=== PATIENT | male | born 1975 | race Caucasian/White ===

== ENCOUNTER 2017-01-19 14:02 | Inpatient (IN) ==
[2017-01-19] MEDS ORDERED: *HR* LORazepam 1 MG TABLET PO ONE (14:39)
--- NOTE | 2017-01-19 14:42 | Emergency Department Note ---
Disposition Clinical Impression: Suicidal ideation, Homicidal ideation, Planning to commit suicide Disposition: Admitted As Inpatient Condition: Fair Referrals: NO,PCP [Primary Care Provider] - Forms: ED Satisfaction Letter Psych HPI - General Chief Complaint: ED Psychiatric Symptoms Stated Complaint: SI Time Seen by Provider: 01/19/17 14:14 Source: family Nursing Notes Reviewed: Yes Vital Signs Reviewed: Yes - History of Present Illness HPI Narrative: The patient has used medications for mental health in the past most recently 1 year ago when he tried 3 different medications but those have since been stopped. The patient resents with several days' symptoms of suicidal ideation and plan to either step in front of a train or tissue to himself was gone and he does have a gun in his home. He does also have some homicidal ideation and when I ask him what he means by this he states "anyone who deserves". He denies any visual or auditory hallucinations. No medications used for symptoms. Is not currently seeing a mental health professional. Social history : No smoking or alcohol or drugs. 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 - Related Data Home Medications Medication Instructions Recorded Confirmed No Known Home Drugs 01/19/17 01/19/17 Allergies Allergy/AdvReac Type Severity Reaction Status Date / Time No Known Allergies Allergy Verified 01/19/17 14:09 Review of Systems: Constitutional: No fever Vision: No blurred vision ENT: No rhinorrhea Respiratory: No cough Allergic: No allergies : No blood in urine GI: No blood in stool Hematologic: No bruising Dermatologic: No skin rash Musculoskeletal: No pain in the extremities Neuro: No numbness of the extremities Past Medical History - Past Medical History Medical history: Reports: no medical history Psychiatric history: Reports: anxiety, depression - Social History Smoking Status: Never smoker Alcohol use: Reports: occasionally Drug use: Reports: none Physical Exam CONSTITUTIONAL: Alert and oriented X3, well-nourished, he does appear agitated, is slightly tremulous, intermittently tearful. HEAD: Normocephalic; atraumatic. EYES: PERRL, no scleral icterus. NOSE: The nose is normal in appearance without rhinorrhea RESP: Normal chest excursion with respiration; breath sounds clear and equal bilaterally; no wheezes, rhonchi, or rales CARD: Regular rhythm, without murmurs, rub or gallop ABD: Non-distended; non-tender, soft,without rigidity, rebound or guarding SKIN: Normal for age and race; warm and dry; no apparent lesions - General General appearance: alert, anxious Course Vital Signs Temperature 98.0 F 01/19/17 14:03 Pulse Rate 102 01/19/17 14:03 Respiratory Rate 22 01/19/17 14:03 Blood Pressure 166/102 01/19/17 14:03 O2 Sat by Pulse Oximetry 97 01/19/17 14:03 Temperature 98.0 F 01/19/17 14:03 Pulse Rate 102 01/19/17 14:03 Respiratory Rate 22 01/19/17 14:03 Blood Pressure 166/102 01/19/17 14:03 O2 Sat by Pulse Oximetry 97 01/19/17 14:03 Oxygen Delivery Oxygen Delivery Room Air Psych - MDM Narrative Medical decision making narrative: The patient does have labs which are pending and will be seen by the psychiatric services. I did write a pink slip is a patient does represent significant harm to both himself and others. 1442 I did review the labs. The patient has been seen by psychiatry. The patient will be admitted to their service. 1524 - Lab Data Result diagrams: 01/19/17 14:46 Lab Results 01/19/17 01/19/17 Range/Units 14:46 14:46 WBC 7.8 (4.3-11.1) K/mcL RBC 5.68 H (4.19-5.50) M/mcL Hgb 17.8 H (12.9-16.9) g/dL Hct 48.5 (37.5-50.1) % MCV 85.4 (83.0-100.0) fL MCH 31.3 (28.0-33.3) pg MCHC 36.7 H (31.6-35.5) g/dL RDW 12.3 (11.5-14.5) % Plt Count 302 (140-400) K/mcL MPV 9.5 (9.4-12.4) fL Immature Gran % 0.3 (0-4) % Seg Neutrophils % 66.9 % Lymphocytes % 25.3 % Monocytes % 6.5 % Eosinophils % 0.0 % Basophils % 1.0 % Neutrophils # 5.2 (1.6-8.9) K/mcL Lymphocytes # 2.0 (0.6-4.6) K/mcL Monocytes # 0.5 (0.0-1.3) K/mcL Eosinophils # 0.0 (0.0-0.6) K/mcL Basophils # 0.1 (0.0-0.2) K/mcL Salicylates < 5.0 L (15-30) mg/dL Acetaminophen < 1.0 L (10-30) mcg/mL Ethyl Alcohol < 10 (0-10) mg/dL Psychiatric Medical Clearance - Medical Clearance Checklist Medical History: No Social History Section defined Current Vitals: Last Vital Signs Temp 98.0 F 01/19/17 14:03 Pulse 102 01/19/17 14:03 Resp 22 01/19/17 14:03 BP 166/102 01/19/17 14:03 Pulse Ox 97 01/19/17 14:03 Psychiatric Lab Panel: Drug Levels and Toxicity 01/19/17 14:46 Acetaminophen < 1.0 L Ethyl Alcohol < 10 Abnormal Labs: Abnormal lab results RBC 5.68 M/mcL (4.19-5.50) H 01/19/17 14:46 Hgb 17.8 g/dL (12.9-16.9) H 01/19/17 14:46 MCHC 36.7 g/dL (31.6-35.5) H 01/19/17 14:46 Salicylates < 5.0 mg/dL (15-30) L 01/19/17 14:46 Acetaminophen < 1.0 mcg/mL (10-30) L 01/19/17 14:46 Statement of Medical Clearance: I have evaluated the patient, reviewed diagnostic information, and certify that the patient's medical condition is sufficiently stable that transfer to the psychiatric unit does not pose a significant risk of deterioration.
[2017-01-19 14:52] LABS: Basophils # 0.1 K/mcL (0.0-0.2); Hematocrit 48.5 % (37.5-50.1); Hemoglobin 17.8 g/dL (12.9-16.9); Immature Granulocytes % 0.3 % (0-4); Lymphocytes % 25.3 %; Mean Corpuscular HGB Conc 36.7 g/dL (31.6-35.5); Mean Corpuscular Hemoglobin 31.3 pg (28.0-33.3); Mean Corpuscular Volume 85.4 fL (83.0-100.0); Mean Platelet Volume 9.5 fL (9.4-12.4); Monocytes # 0.5 K/mcL (0.0-1.3); Monocytes % 6.5 %; Neutrophils # 5.2 K/mcL (1.6-8.9); Platelet Count 302 K/mcL (140-400); Red Blood Count 5.68 M/mcL (4.19-5.50); Red Cell Distribution Width 12.3 % (11.5-14.5); Segmented Neutrophils % 66.9 %
[2017-01-19 15:07] LABS: Acetaminophen < 1.0 mcg/mL (10-30); Ethanol < 10 mg/dL (0-10); Salicylate < 5.0 mg/dL (15-30)
[2017-01-19 15:28] LABS: BUN/Creatinine Ratio 10 (6-26); Blood Urea Nitrogen 13 mg/dL (8-26); Calcium 10.5 mg/dL (8.6-10.8); Carbon Dioxide 25 mEq/L (19-29); Chloride 104 mEq/L (98-109); Glucose 92 mg/dL (70-99); Osmolality,Calculated 288 (280-300); Potassium 3.9 mEq/L (3.5-4.5); Sodium 139 mEq/L (136-145); eGFR For African Americans > 60 (> 60); eGFR For Non-African Americans > 60 (> 60)
[2017-01-19 16:17] LABS: Amphetamine Screen,Urine Negative ng/mL (Cutoff=1000); Barbiturate Screen,Urine Negative ng/mL (Cutoff=200); Benzodiazepines Screen,Urine Negative ng/mL (Cutoff=200); Cannabinoid Screen,Urine Negative ng/mL (Cutoff = 50); Cocaine Screen,Urine Negative ng/mL (Cutoff= 300); Opiate Screen,Urine Negative ng/mL (Cutoff=300); Phencyclidine Screen,Urine Negative ng/mL (Cutoff=25)
[2017-01-19] MEDS ORDERED: *HR* LORazepam 1 MG TABLET PO PRN (18:40)
[2017-01-19] MEDS ORDERED: hydrOXYzine pamoate 25 MG CAPSULE PO PRN (18:40)
[2017-01-19] MEDS ORDERED: MOM Conc 10 ML UD.LIQ PO PRN (18:40)
[2017-01-19] MEDS ORDERED: Haloperidol Lactate 5 MG/ML VIAL IM PRN (18:40)
[2017-01-19] MEDS ORDERED: *HR* LORazepam 2 MG/ML VIAL IM PRN (18:40)
[2017-01-19] MEDS ORDERED: Mag Hydrox/Al Hydrox/Simeth 30 ML UDC PO PRN (18:40)
[2017-01-19] MEDS: Acetaminophen 325 MG TABLET PO PRN (21:05)
[2017-01-19] MEDS: traZODone 50 MG TABLET PO PRN (21:06)
--- NOTE | 2017-01-20 13:13 | Psychiatry History & Physical ---
Date of Encounter: 01/20/17 Time of Encounter: 12:45 History of Present Illness Patient Stated Chief Complaint: "I feel so lost." Medicare Admission Attestation: For traditional Medicare patients the provided hospital inpatient services are reasonable and necessary and in the case of services not specified as inpatient -only under 42 CFR 419.22 (n), that they are appropriately provided as inpatient services in accordance 42 CFR 412.3. For Critical Access Hospital the patient may reasonably be expected to be discharged or transferred to a hospital within 96 hours after admission to the Critical Access Hospital. History of Present Illness: Mr. Turner is a 41 year old male with a history of anxiety who presents to the hospital with increasing depression and suicidal ideations. Patient voiced a plan to shoot himself. He states that he has had a lot of increased stress over the past few months. 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 He also states he is having relationship troubles with his current of 5 years. They do not have children together but has apparently decided to separate and patient is not sure why. He feels hopeless about his life and does not think things will get better. He has had some outpatient management of anxiety symptoms with his previous doctor. He was tried on Paxil, Prozac,Trintellix and they all cause extreme fatigue. Patient would like to try another medicine but is hesitant to try meds that may cause fatigue. He reports his sleep has been worsening over the past couple of weeks. He has a maximum of 4-5 hours a night average between several nights. He is staying with his sister because he has have but he does report access to a firearm at his house. No history of auditory or visual hallucinations. He denies obsessions, delusions, paranoia. Past Med Surg Social Fam HX - Past Medical History Medical history: no medical history - Past Psychiatric History Psychiatric history: Reports: anxiety. Denies: prior suicide attempt, previous psychiatric hospitalization Past psychiatric history details: Patient has had outpatient management of anxiety symptoms only. No history of suicide attempts. Family psychiatric history: No Family History of Suicide: None - Past Surgical History Surgical History: no surgical history - Social History Smoking Status: Never smoker Smokeless Tobacco Status: No Alcohol use: occasionally Drug use: none Occupational status: employed Current living situation: With Family - Family History Mother Hx Family Medical Disorders: No Father Hx Family Cancer: Yes (skin) Medications & Allergies No Known Home Drugs 01/19/17 [History] Allergies No Known Allergies Allergy (Verified 01/19/17 14:09) Review of Systems Constitutional: Denies: fever, chills, weakness, weight change Eyes: Denies: eye pain, vision change Ears, Nose, Throat: Denies: ear pain, throat pain, dental pain, hearing loss, congestion Cardiovascular: Denies: chest pain, palpitations, dyspnea on exertion Respiratory: Denies: cough, dyspnea, wheezes Gastrointestinal: Denies: abdominal pain, nausea, vomiting, diarrhea, constipation Genitourinary male: Denies: urgency, dysuria, frequency, genital lesions Genitourinary female: Denies: urgency, dysuria, frequency, abnormal menses, dyspareunia Musculoskeletal: Denies: joint swelling, joint pain Integumentary: Denies: rash, lesions, pruritus Neurological: Denies: headache, weakness, numbness, memory loss Psychiatric: Reports: depression, anxiety, abnormal sleep pattern, suicidal ideation, anhedonia, difficulty concentrating, hopelessness, irritability. Denies: auditory hallucinations, visual hallucinations Endocrine: Denies: fatigue, heat or cold intolerance Hematologic/Lymphatic: Denies: easy bruising, lymphadenopathy Allergic/Immunologic: Denies: urticaria, itchy eyes Mental Status Exam Patient orientation: Yes Person, Yes Time, Yes Place Level of alertness: Alert Patient appearance: Appropriate Behavior: calm, cooperative Psychomotor activity: Normal Eye contact: Diverts Contact Mood description: Depressed Affect description: congruent with mood, tearful, dysphoric Speech pattern: Normal rate, Normal rhythm, Normal tone Speech volume: Normal Thought process: Intact, Goal Oriented Thought content: Yes Suicidal ideation, No Homicidal ideation Perceptual disturbances: No Auditory hallucinations, No Visual hallucinations Attention span: Capable of Focused Attention Memory description: Grossly Intact Patient reliability: Reliable Historian Intelligence estimate: Average Judgment: Limited Insight: Minimal Exam - HEENT Head exam IM: Present: atraumatic Eye exam IM: Present: EOMI - Neurological Neurological exam IM: Present: CN II-XII intact - Extremities Extremities exam IM: Present: full ROM Results - Vital Signs Vital signs: Temp Pulse Resp BP Pulse Ox 97.8 F 76 16 122/79 97 01/20/17 09:00 01/20/17 09:00 01/20/17 09:00 01/20/17 09:00 01/19/17 14:03 - Labs Labs: Laboratory Last Values WBC 7.8 K/mcL (4.3-11.1) 01/19/17 14:46 RBC 5.68 M/mcL (4.19-5.50) H 01/19/17 14:46 Hgb 17.8 g/dL (12.9-16.9) H 01/19/17 14:46 Hct 48.5 % (37.5-50.1) 01/19/17 14:46 MCV 85.4 fL (83.0-100.0) 01/19/17 14:46 MCH 31.3 pg (28.0-33.3) 01/19/17 14:46 MCHC 36.7 g/dL (31.6-35.5) H 01/19/17 14:46 RDW 12.3 % (11.5-14.5) 01/19/17 14:46 Plt Count 302 K/mcL (140-400) 01/19/17 14:46 MPV 9.5 fL (9.4-12.4) 01/19/17 14:46 Immature Gran % 0.3 % (0-4) 01/19/17 14:46 Seg Neutrophils % 66.9 % 01/19/17 14:46 Lymphocytes % 25.3 % 01/19/17 14:46 Monocytes % 6.5 % 01/19/17 14:46 Eosinophils % 0.0 % 01/19/17 14:46 Basophils % 1.0 % 01/19/17 14:46 Neutrophils # 5.2 K/mcL (1.6-8.9) 01/19/17 14:46 Lymphocytes # 2.0 K/mcL (0.6-4.6) 01/19/17 14:46 Monocytes # 0.5 K/mcL (0.0-1.3) 01/19/17 14:46 Eosinophils # 0.0 K/mcL (0.0-0.6) 01/19/17 14:46 Basophils # 0.1 K/mcL (0.0-0.2) 01/19/17 14:46 Sodium 139 mEq/L (136-145) 01/19/17 14:46 Potassium 3.9 mEq/L (3.5-4.5) 01/19/17 14:46 Chloride 104 mEq/L (98-109) 01/19/17 14:46 Carbon Dioxide 25 mEq/L (19-29) 01/19/17 14:46 BUN 13 mg/dL (8-26) 01/19/17 14:46 Creatinine 1.24 mg/dL (0.72-1.25) 01/19/17 14:46 Est GFR ( Amer) > 60 (> 60) 01/19/17 14:46 Est GFR (Non-Af Amer) > 60 (> 60) 01/19/17 14:46 BUN/Creatinine Ratio 10 (6-26) 01/19/17 14:46 Glucose 92 mg/dL (70-99) 01/19/17 14:46 Calculated Osmolality 288 (280-300) 01/19/17 14:46 Calcium 10.5 mg/dL (8.6-10.8) 01/19/17 14:46 TSH 2.952 mcIU/mL (0.350-4.840) 01/19/17 14:46 Salicylates < 5.0 mg/dL (15-30) L 01/19/17 14:46 Urine Opiates Screen Negative ng/mL (Oyctik=837) 01/19/17 16:00 Acetaminophen < 1.0 mcg/mL (10-30) L 01/19/17 14:46 Ur Barbiturates Screen Negative ng/mL (Wsjxei=607) 01/19/17 16:00 Ur Phencyclidine Scrn Negative ng/mL (Cutoff=25) 01/19/17 16:00 Ur Amphetamines Screen Negative ng/mL (Sriaxa=9735) 01/19/17 16:00 U Benzodiazepines Scrn Negative ng/mL (Icbdwq=494) 01/19/17 16:00 Urine Cocaine Screen Negative ng/mL (Cutoff= 300) 01/19/17 16:00 U Marijuana (THC) Screen Negative ng/mL (Cutoff = 50) 01/19/17 16:00 Ethyl Alcohol < 10 mg/dL (0-10) 01/19/17 14:46 Assessment and Plan (1) Major depressive disorder Current visit: Yes Status: Acute Plan: Admit inpatient for safety and stabilization, Close observation, Suicide Precautions per unit protocol, Encourage participation in unit milieu, Group Therapy, Monitor sleep, Monitor appetite Additional Plan: We will admit to 1 a for psychiatric stabilization. Incorporate patient into therapeutic milieu and offer group and individual as well as recreational therapy. Suicide precautions. Start Wellbutrin for depression. Trazodone when necessary for sleep. Risks, benefits, side effects, alternatives discussed w/pt: Yes Patient agreeable to treatment: Yes Plans for Post Hospital Care: Home Estimated Length of Stay (Days): 3 Qualifiers: Major depression recurrence: recurrent Active/Remission status: currently active Major depression episode severity: severe Psychotic features: without psychotic features Qualified Code(s): F33.2 - Major depressive disorder, recurrent severe without psychotic features (2) Anxiety Current visit: Yes Status: Acute Plan: Admit inpatient for safety and stabilization, Close observation, Suicide Precautions per unit protocol, Encourage participation in unit milieu, Group Therapy, Monitor sleep, Monitor appetite Additional Plan: Encourage positive coping strategies. Vistaril for anxiety. Risks, benefits, side effects, alternatives discussed w/pt: Yes Patient agreeable to treatment: Yes Plans for Post Hospital Care: Home
[2017-01-20] MEDS: Acetaminophen 325 MG TABLET PO PRN (14:57)
[2017-01-20] MEDS: BuPROPion XL (24 HR) 150 MG TABLET PO SCH (14:57)
[2017-01-20] MEDS: traZODone 50 MG TABLET PO PRN (20:17)
[2017-01-21] MEDS: BuPROPion XL (24 HR) 150 MG TABLET PO SCH (09:24)
--- NOTE | 2017-01-21 12:42 | Psychiatry Progress Note ---
Date of Encounter: 01/21/17 Time of Encounter: 12:40 Subjective Interval history: Patient seen and interviewed. Not feeling good today. Extremely tearful and dysphoric. Patient reported poor sleep. Talked at length about his ongoing marital issues and challenges at work. Patient feels extremely overwhelmed hopeless and depressed. No safety plan. Tolerating medications fairly well. Requesting a different sleep aid. Review of Systems Psychiatric: Reports: depression, anxiety, abnormal sleep pattern, suicidal ideation, anhedonia, difficulty concentrating, hopelessness, irritability. Denies: auditory hallucinations, visual hallucinations Objective: Exam Patient orientation: Yes Person, Yes Time, Yes Place Level of alertness: Alert Patient appearance: Appropriate, Well Groomed Behavior: anxious, tearful Psychomotor activity: Normal Eye contact: Minimal Contact Mood description: Depressed, Anxious Affect description: constricted, tearful, dysphoric Speech pattern: Slowed Speech volume: Soft/Quiet Thought process: Linear, Goal Oriented Thought content: Yes Suicidal ideation Perceptual disturbances: No Auditory hallucinations, No Visual hallucinations Judgment: Fair Insight: Partial Results - Vital Signs Vital Signs: Temp Pulse Resp BP Pulse Ox 97.8 F 61 16 128/83 97 01/21/17 09:00 01/21/17 09:00 01/21/17 09:00 01/21/17 09:00 01/19/17 14:03 Assessment and Plan (1) Major depressive disorder Current visit: Yes Status: Acute Plan: Continue hospitalization, Close observation, Suicide Precautions per unit protocol, Encourage participation in unit milieu, Group Therapy, Monitor sleep, Monitor appetite Additional Plan: Will discontinue trazodone and start the patient on Restoril 30 mg at bedtime for insomnia. We will continue with the current regimen of medications. Risks, benefits, side effects, alternatives discussed w/pt: Yes Patient agreeable to treatment: Yes Qualifiers: Major depression recurrence: recurrent Active/Remission status: currently active Major depression episode severity: severe Psychotic features: without psychotic features Qualified Code(s): F33.2 - Major depressive disorder, recurrent severe without psychotic features (2) Anxiety Current visit: Yes Status: Acute Plan: Continue hospitalization, Close observation, Suicide Precautions per unit protocol, Encourage participation in unit milieu, Group Therapy, Monitor sleep, Monitor appetite Risks, benefits, side effects, alternatives discussed w/pt: Yes Patient agreeable to treatment: Yes Consult Discharge Plan - Plan Referrals: [facility] [Outside] - 02/15/17 10:00 am (The above appointment is with , for mental health counseling services. Please arrive 10 minutes early to complete the check-in process. Please bring your insurance card and photo ID. If you are unable to keep this appointment, 24 hour business notice of cancellation is expected. If you miss your new patient appointment without providing appropriate notice, you cannot be re-scheduled. This is the first available appointment. You may contact the office regularly to check for cancellations that may allow you to be seen sooner. The [facility] is the 1st building behind [facility] in [place], [place]. Please do not use GPS or mapping apps to locate the office, as they will take you to the wrong location. ) Ludin Galvin DO [Partnered Physician] - 01/30/17 9:30 am (The above appointment is with Dr. Galvin, primary care provider, for ongoing health and medication management.)
[2017-01-21] MEDS: Temazepam 15 MG CAPSULE PO SCH (21:23)
[2017-01-22] MEDS: BuPROPion XL (24 HR) 150 MG TABLET PO SCH (08:33)
--- NOTE | 2017-01-22 11:39 | Psychiatry Progress Note ---
Date of Encounter: 01/22/17 Time of Encounter: 10:55 Subjective Interval history: Patient seen and interviewed. He started to notice slight improvement in his mood. Patient reported that a lot of family members visited him yesterday and supported him. He is coming up with a better future plan which included moving to [place] with the other sister and will resume his job. Patient is becoming more future oriented. He is still pondering in ruminating about his relationship problem with his girlfriend but at the same time he is also coming to terms with this reality that he needs to focus on himself first. Still endorsing some sadness and is working on a safety plan. Review of Systems Psychiatric: Reports: depression, anxiety, anhedonia. Denies: auditory hallucinations, visual hallucinations Objective: Exam Patient orientation: Yes Person, Yes Time, Yes Place Level of alertness: Alert Patient appearance: Appropriate, Well Groomed Behavior: calm, cooperative Psychomotor activity: Normal Eye contact: Maintains Eye Contact Mood description: Depressed Affect description: constricted Speech pattern: Normal rate, Normal rhythm, Normal tone Speech volume: Normal Thought process: Linear, Goal Oriented Thought content: No Suicidal ideation, No Homicidal ideation, No Overt delusions Perceptual disturbances: No Auditory hallucinations, No Visual hallucinations Judgment: Fair Insight: Partial Results - Vital Signs Vital Signs: Temp Pulse Resp BP Pulse Ox 97.7 F 67 16 119/81 97 01/22/17 08:27 01/22/17 08:27 01/22/17 08:27 01/22/17 08:27 01/19/17 14:03 Assessment and Plan (1) Major depressive disorder Current visit: Yes Status: Acute Plan: Continue hospitalization, Close observation, Suicide Precautions per unit protocol, Encourage participation in unit milieu, Group Therapy, Monitor sleep, Monitor appetite Additional Plan: Continue with current medications. Possible discharge tomorrow Risks, benefits, side effects, alternatives discussed w/pt: Yes Patient agreeable to treatment: Yes Qualifiers: Major depression recurrence: recurrent Active/Remission status: currently active Major depression episode severity: severe Psychotic features: without psychotic features Qualified Code(s): F33.2 - Major depressive disorder, recurrent severe without psychotic features (2) Anxiety Current visit: Yes Status: Acute Plan: Continue hospitalization, Close observation, Suicide Precautions per unit protocol, Encourage participation in unit milieu, Group Therapy, Monitor sleep, Monitor appetite Risks, benefits, side effects, alternatives discussed w/pt: Yes Patient agreeable to treatment: Yes Consult Discharge Plan - Plan Referrals: [facility] [Outside] - 02/15/17 10:00 am (The above appointment is with , for mental health counseling services. Please arrive 10 minutes early to complete the check-in process. Please bring your insurance card and photo ID. If you are unable to keep this appointment, 24 hour business notice of cancellation is expected. If you miss your new patient appointment without providing appropriate notice, you cannot be re-scheduled. This is the first available appointment. You may contact the office regularly to check for cancellations that may allow you to be seen sooner. The [facility] is the 1st building behind [facility] in [place], [place]. Please do not use GPS or mapping apps to locate the office, as they will take you to the wrong location. ) Ludin Galvin, [Partnered Physician] - 01/30/17 9:30 am (The above appointment is with Dr. Galvin, primary care provider, for ongoing health and medication management.)
[2017-01-22] MEDS: Temazepam 15 MG CAPSULE PO SCH (20:49)
[2017-01-23] MEDS: BuPROPion XL (24 HR) 150 MG TABLET PO SCH (08:33)
[2017-01-23 09:32] VITALS: BP 122/76
--- NOTE | 2017-01-23 12:13 | Discharge Summary ---
Date of Encounter: 01/23/17 Time of Encounter: 12:06 Diagnosis - Discharge Diagnosis (1) Major depressive disorder Status: Acute Qualifiers: Major depression recurrence: recurrent Active/Remission status: currently active Major depression episode severity: severe Psychotic features: without psychotic features Qualified Code(s): F33.2 - Major depressive disorder, recurrent severe without psychotic features Medications - Discharge Medications Prescriptions: BuPROPion XL (24 HR) [Wellbutrin Xl] 150 mg PO DAILY #30 tab.er.24h BuPROPion XL (24 HR) [Wellbutrin Xl] 150 mg PO DAILY #30 tab.er.24h 01/23/17 [Rx ] Temazepam [Restoril] 30 mg PO HS capsule 01/23/17 [Rx] Allergies No Known Allergies Allergy (Verified 01/19/17 14:09) Provider Date of admission: 01/19/17 18:30 Primary care physician: PCP NO Discharging clinician: Ayanna Arambula Assessment and Plan - Patient/Caregiver Discharge Instructions Activity: resume usual activities as tolerated Diet: regular diet - Follow up Plan Follow up with: [facility] [Outside] - 02/15/17 10:00 am (The above appointment is with , for mental health counseling services. Please arrive 10 minutes early to complete the check-in process. Please bring your insurance card and photo ID. If you are unable to keep this appointment, 24 hour business notice of cancellation is expected. If you miss your new patient appointment without providing appropriate notice, you cannot be re-scheduled. This is the first available appointment. You may contact the office regularly to check for cancellations that may allow you to be seen sooner. The [facility] is the 1st building behind [facility] in [place], [place]. Please do not use GPS or mapping apps to locate the office, as they will take you to the wrong location. ) Ludin Galvin DO [Partnered Physician] - 01/30/17 9:30 am (The above appointment is with Dr. Galvin, primary care provider, for ongoing health and medication management.) Overall status at discharge: Stable Disposition: Home, Self-Care Hospital Course Hospital course: Mr. Turner is a 41 year old male who was admitted secondary to SI with a plan to shoot himself. Staff report the gun he had access to has been removed by family. Client is feeling better and ready to go. He is still tearful but admits he is now on the right track. Denies SI. Has a plan to move to [place] to live with sister. She is moving his belongings as this note is being typed. Has a job in [place] so this will reduce the stress of his commute time. Son lives in [place] but he has plans to purchase a condo so he can visit him on the weekends. Has supportive friends he can stay with in the meantime. Future oriented. Grateful for the intervention. Has outpatient follow-up in place and client reports "I will definitely be making that appointment." Understands he needs to prioritize his mental health. Wellbutrin started this admission and client reports it seems to be helping and he understands it will be a while before he has the full benefit of this new medication. - Time Spent with Patient Total time spent providing and/or coordinating discharge services: Quality - Multiple Antipsychotics Patient discharged on 2 or more antipsychotic medications: No Procedures - Procedures Procedures: Medication Management, Crisis Stabilization, Supportive Therapy, Group Therapy Mental Status Exam - Mental Status Exam Patient orientation: Yes Person, Yes Time, Yes Place Level of alertness: Alert Patient appearance: Appropriate, Well Groomed Behavior: calm, cooperative Psychomotor activity: Normal Eye contact: Maintains Eye Contact Mood description: Anxious Affect description: tearful Speech pattern: Normal rate, Normal rhythm, Normal tone Speech Volume: Normal Thought process: Linear, Goal Oriented Thought Content: No Suicidal ideation, No Homicidal ideation, No Overt delusions Perceptual Disturbances: No Auditory hallucinations, No Visual hallucinations Judgment: Fair Insight: Partial
== END 2017-01-23 14:11 | disposition home or self-care (01) | DRG 885 ==
LOC: EMEROO 14:02 → SUATTDRO 18:30 → 1ANU 18:30
PROVIDERS: ADMIT Student in an Organized Health Care Education/Training Program; ATTEND Psychiatry & Neurology Psychiatry